=== PATIENT | male | born 1960 | race Caucasian/White ===

== ENCOUNTER 2016-11-22 12:50 | Emergency (ER) | payer SELFPAY ==
[~2016-11-22] VITALS: Ht 175.3 cm; Wt 80.0 kg
[2016-11-22 12:52] VITALS: BP 178/116; PULSE 104; RESP 17; TEMP 97.8; O2SAT 98
--- NOTE | 2016-11-22 13:18 | PD ---
HPI . right shoulder pain for 3 days Chief Complaint: Injury Time Seen by Provider: 13:17 Travel History International Travel<30 days: No Contact w/Intl Traveler<30days: No Traveled to known affect area: No History of Present Illness HPI 55 yr old male with no PMH other than ? HTN here with c/o right shoulder pain for about 2-3 days. Patient says he is almost certain he has a rotator cuff injury and needs it checked out. [place] from [place] and does not have a PCP in town. He c/o right shoulder pain, especially with movement. He has difficulty moving the right shoulder joint. He denies any trauma or direct hits. He denies any shoulder dislocation. He does not have any other issues and denies any other pain. PFSH Past Medical History Medical History: Denies Significant Hx Social History Tobacco Use: No Substance Use: No Allergies-Medications (Allergen,Severity, Reaction): Coded Allergies: No Known Allergies (Unverified , 11/22/16) Reported Meds & Prescriptions Reported Meds & Active Scripts Active Robaxin (Methocarbamol) 500 Mg Tab 500 Mg PO TID Review of Systems General / Constitutional: No: Fever Eyes: No: Visual changes HENT: No: Headaches Cardiovascular: No: Chest Pain or Discomfort Respiratory: No: Shortness of Breath Gastrointestinal: No: Abdominal Pain Genitourinary: No: Dysuria Musculoskeletal: Positive: Pain (right shoulder) Skin: No Rash Neurologic: No: Weakness Psychiatric: No: Depression Endocrine: No: Polydipsia Hematologic/Lymphatic: No: Easy Bruising Physical Exam Narrative GENERAL: AAO x 3, no acute distress, Well-nourished, well-developed patient. SKIN: Warm and dry. No visible rashes or bruising. HEAD: Normocephalic and atraumatic. EYES: No scleral icterus. No injection or drainage. ENT: No nasal drainage noted. Mucous membranes pink. Airway patent. NECK: Supple, trachea midline. No JVD. CARDIOVASCULAR: Regular rate and rhythm without murmurs, gallops, or rubs. RESPIRATORY: Breath sounds equal bilaterally. No accessory muscle use. No rhonchi or rales. GASTROINTESTINAL: no abnormality on visual inspection EXTREMITIES: No cyanosis or edema. There is decreased ROM in the right shoulder (abduction, rotation). He can cross his arm over to the opposite shoulder.Pharmacy Resource Tech strength is normal. Left joint without any issues. BACK: Nontender without obvious deformity. No CVA tenderness. PSYCH: AAO x 3, normal affect. Data Data Last Documented VS Vital Signs Date Time Temp Pulse Resp B/P Pulse Ox O2 Delivery O2 Flow Rate FiO2 11/22/16 12:52 97.8 104 17 178/116 98 MDM Medical Decision Making Medical Screen Exam Complete: Yes Emergency Medical Condition: Yes Medical Record Reviewed: Yes (none on file) Differential Diagnosis rotator cuff injury, less likely shoulder dislocation, less likely shoulder fracture Narrative Course 55 yr old male with no PMH other than ? HTN here with c/o right shoulder pain for about 2-3 days. Patient says he is almost certain he has a rotator cuff injury and needs it checked out. He [place] and does not have a PCP in town. He c/o right shoulder pain, especially with movement. He has difficulty moving the right shoulder joint. He denies any trauma or direct hits. He denies any shoulder dislocation. He does not have any other issues and denies any other pain. Patient seen and examined. He does not appear to have any acute trauma or shoulder dislocation. He appears to have a rotator cuff injury. I believe he may have a tear. I explained that he will need to establish with a primary care provider in the area and have a MRI done to assess this. He will need to call the phone number on the back of insurance card and find someone who can take his insurance locally. I have provided him with a short course of muscle relaxers to help ease the discomfort of this injury. He is aware that this will not fix his issue. I explained to him that oftentimes rotator cuff will need things such as physical therapy and sometimes surgery. Advised f/u on HTN. I acknowledge that this bp can be elevated due to pain level from this injury. Patient verbalized understanding of instructions, questions were answered, and thanked me for their care. I advised them if their condition worsens, please return to the nearest emergency room for further care. Diagnosis Primary Impression: Rotator cuff injury Qualified Code: S46.001A - Rotator cuff injury, right, initial encounter Patient Instructions: General Instructions Additional Instructions: Rest the affected area as much as possible. Ice this area for 15-20 minutes at a time. You can do this every hour or as much as tolerated. Use ibuprofen as needed for pain and inflammation. Please return to emergency department if your symptoms return or worsen. Follow up with your primary care provider. Take medications as prescribed. As we discussed, you will need to establish with a primary care locally. They will help you get the MRI ordered and refer you to orthopedics. Med/Other Pt SpecificInfo: Prescription(s) given Scripts Methocarbamol (Robaxin)500 Mg [id number] Mg PO TID #15 TAB Ref 0 Prov:Yoan Gregorio MD 11/22/16 Disposition: 01 DISCHARGE HOME Condition: Stable Oxana Klein Nov 22, 2016 13:18
[2016-11-22] MEDS ORDERED: ROBA500T PO (13:24)
== END 2016-11-22 13:35 | disposition home or self-care (01) ==
LOC: NEPB 12:50
DX: M75.101 Unspecified rotator cuff tear or rupture of right shoulder, not specified as traumatic (principal)
CPT/HCPCS: 99283